=== PATIENT | male | born 1965 | race African-American/Black ===

== ENCOUNTER 2020-09-04 11:54 | Emergency (ER) | payer MEDICAID ==
[~2020-09-04] VITALS: Ht 195.6 cm; Wt 81.2 kg
[2020-09-04 12:14] VITALS: BP 149/92
[2020-09-04] MEDS ORDERED: LIDOCAINE-MPF 1%, 5ML INFIL ONE (12:30)
--- NOTE | 2020-09-04 13:46 | NUR ---
CHIEF DESIGN DRAFTER: CALLED FOR ROOM, NO ANSWER
--- NOTE | 2020-09-04 14:07 | NUR ---
SLASHER HAND: CALLED FOR ROOM, NO ANSWER
--- NOTE | 2020-09-04 14:27 | NUR ---
NAVY SEAL: CALLED FOR ROOM, NO ANSWER
== END 2020-09-04 14:30 | disposition left against medical advice (07) ==
LOC: ED 14:24
DX: K04.7 Periapical abscess without sinus (principal); R22.0 Localized swelling, mass and lump, head
CPT/HCPCS: 99281